=== PATIENT | female | born 2000 | race Caucasian/White ===

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

== ENCOUNTER 2024-02-15 17:26 | Emergency (ER) | payer OTHER, SELFPAY ==
[2024-02-15 17:37] VITALS: BP 98/65; PULSE 66; RESP 16; TEMP 36.6; O2SAT 100
--- NOTE | 2024-02-15 17:53 | XRR_ITS ---
PROCEDURE INFORMATION: Exam: XR Chest Exam date and time: 02/15/2024 6:02 PM Age: 23 years old Clinical indication: Other: RT breast mass; Additional info: Right chest wall pain TECHNIQUE: Imaging protocol: Radiologic exam of the chest. Views: 1 view. COMPARISON: No relevant prior studies available. FINDINGS: Lungs: Unremarkable. No consolidation. Pleural spaces: Unremarkable. No pleural effusion. No pneumothorax. Heart/Mediastinum: Unremarkable. No cardiomegaly. Bones/joints: Unremarkable. XR/XR chest 1V portable [id number] IMPRESSION: No acute findings.
--- NOTE | 2024-02-15 17:56 | USR_ITS ---
PROCEDURE INFORMATION: Exam: US Right Breast Limited Exam date and time: 02/15/2024 6:51 PM Age: 23 years old Clinical indication: Breast pain; Right; Additional info: Right chest wall painful lump TECHNIQUE: Imaging protocol: Limited ultrasound of right breast with image documentation, including axilla when performed. Exam focused on the search and evaluation for mass. COMPARISON: No relevant prior studies available. FINDINGS: ULTRASOUND: Breast ultrasound findings: No evidence of breast mass. At the site of pain/lump a rib is noted. US/US soft tissue/extremity [id number] IMPRESSION: Underlying rib noted at the site of pain/lump. No sonographic evidence of malignancy. Annual mammographic screening is recommended unless otherwise clinically indicated.
--- NOTE | 2024-02-15 17:57 | ED_ITS ---
Documented by User: STEVE Garcia 02/15/24 19:53 HPI - General Adult General: Chief complaint: General Medical Stated complaint: lump on right side of chest Time Seen by Provider: 02/15/24 17:40 Source: patient Mode of arrival: ambulatory Limitations: no limitations History of Present Illness: Patient is a 23-year-old female who presents to the emergency department for evaluation of right breast lump noticed 2 days ago. The bump is just superior to the right breast, on the right chest wall. She notes that it is painful to palpation. She noticed it while breathing and felt that the pain is worsened by this. She does note she had an issue in 2018 where her entire right breast enlarged asymmetrically, and resolved spontaneously. She notes she has not had issues like this since, though was told by her doctor that she would need further evaluation if it happened again. She states that her mom urged her to come in for evaluation. She has no personal or immediate family history of breast cancer or other abnormalities. She denies any fever, breathing difficulties, or other symptoms at this time. Onset (ago): day(s) Location: chest Severity: mild Associated symptoms: Deny chest pain, dyspnea, headache(s), nausea, rash, palp itations or vomiting Review of Systems General: Reports: 10 or more systems reviewed and unremarkable except in HPI and below Const: Denies: fever(s), chills or fatigue Eyes: Denies: change in vision ENMT: Denies: throat pain, ear or mastoid pain or nasal discharge Card: Denies: chest pain, palpitations, swelling of feet/ankles or lightheadedness Resp: Denies: dyspnea, productive cough or wheezing GI: Denies: abdominal pain, nausea, vomiting, diarrhea or constipation : Denies: flank pain, difficulty voiding, dysuria or urinary frequency Musc: Denies: neck pain, back pain or joint pain Skin/Breast: Reports: skin tenderness and breast mass; Denies: rash Neuro: Denies: headache(s), numbness in extremities or weakness in extremities PFSH ED PFSH: Family History Denies family history of Diabetes Ovarian cyst CAD (coronary artery disease) Clotting disorder Hyperlipidemia Chronic kidney disease (CKD) Anesthesia complication Family history of thyroid problem Bleeding disorder Cancer Hypertension Social History Smoking and tobacco/nicotine status: never used tobacco/nicotine Alcohol intake: never Substance/Drug Use: never Physical Exam Const: COMMON NORMALS: no acute distress, patient oriented x3 and no limitations GENERAL APPEARANCE: cooperative, comfortable and well developed ORIENTATION/CONSCIOUSNESS: Yes awake, Yes oriented to person, Yes oriented to place and Yes oriented to time HENMT: COMMON NORMALS: normocephalic, atraumatic and hearing grossly normal bilaterally HEAD & SCALP: normocephalic and atraumatic Eye: COMMON NORMALS: Equal, round and reactive pupils present, EOMs intact bilaterally and conjunctivae normal CONJUNCTIVA: Yes conjunctivae normal PUPIL: Yes Equal, round and reactive pupils present Neck/C-Spine: COMMON NORMALS: full ROM, supple and no JVD Chest: COMMONS NORMALS: normal inspection of the chest CHEST: No mass and Yes tenderness pectoral muscle on the right Resp: COMMON NORMALS: normal respiratory effort, No retractions, No use of accessory muscles and clear to auscultation bilaterally AUSCULTATION: clear to auscultation bilaterally Cardio: COMMON NORMALS: no JVD, regular rate, regular rhythm, No clicks present (Cardio), No murmurs present (Cardio) and No rub (Cardio) RATE: regular rate RHYTHM: regular rhythm GI: COMMON NORMALS: Normal to inspection, nondistended, normoactive bowel sounds present, Soft to palpation and non-tender AUSCULTATION: Yes normoactive bowel sounds PALPATION: Yes Soft to palpation RECTAL EXAM: deferred Extremity: COMMON NORMALS: normal to inspection, full ROM and capillary refill normal Neuro: COMMON NORMALS: patient oriented x3, moves all extremities, no focal motor deficits and no sensory deficits noted SENSORIUM/ORIENTATION: Yes oriented to person, Yes oriented to place and Yes oriented to time Psych: COMMON NORMALS: mental status grossly normal and Normal thought process present THOUGHT PROCESS: Normal thought process present Skin: COMMON NORMALS: no rashes or lesions noted GENERAL SKIN EXAM: no rashes or lesions noted Course Vital Signs: Vital signs: Vital Signs Temperature 97.8 F 02/15/24 17:37 Pulse Rate 66 02/15/24 17:37 Respiratory Rate 16 02/15/24 17:37 Blood Pressure 98/65 02/15/24 17:37 Pulse Oximetry 100 02/15/24 17:37 MDM - General Adult Medical Decision Making Patient seen for pain to the right chest wall. She states she felt a mass that was worse with palpation and breathing. No personal or family history of breast malignancy or other abnormalities. Exam revealed tenderness palpation about the right anterior chest, no real appreciable mass however. X-ray was normal. Ultrasound did not show evidence of any mass or other concerning signs for malignancy. Instructed patient to follow-up with primary care routinely and return precautions were given. Due to patient's pain with palpation and worsened with breathing, I believe patient potentially has a costochondritis and can treat with ibuprofen and ice as needed. Patient agrees with this plan. Lab Data Radiology Impressions Chest X-Ray 02/15/24 17:53 IMPRESSION: No acute findings. Soft Tissue Ultrasound 02/15/24 17:56 IMPRESSION: Underlying rib noted at the site of pain/lump. No sonographic evidence of malignancy. Annual mammographic screening is recommended unless otherwise clinically indicated. All radiology interpretation(s) finalized by discharge Discharge Plan Discharge Patient Disposition: Home Clinical Impression: Acute costochondritis Condition: Stable Discharge Orders: Discharge ED (Routine); Ordered 02/15/24 Ordered By: Ronan Golden Referrals: Dago Slater DO [Primary Care Provider] - Discharge Diet: Usual diet Discharge Activity: Resume usual activity Patient Instructions: Costochondritis (ED) Activity Restrictions/Additional Instructions: Ibuprofen as needed. Ice to the area as needed. Follow-up with primary care for any further evaluation. Return if you have any new or concerning symptoms. Coding Level of Care Code ED [employer] Documented by User: Elio Whitten DO 02/16/24 07:50 HPI - General Adult General: Chief complaint: General Medical Stated complaint: lump on right side of chest Time Seen by Provider: 02/15/24 17:40 PFSH ED PFSH: Family History Denies family history of Diabetes Ovarian cyst CAD (coronary artery disease) Clotting disorder Hyperlipidemia Chronic kidney disease (CKD) Anesthesia complication Family history of thyroid problem Bleeding disorder Cancer Hypertension Social History Smoking and tobacco/nicotine status: never used tobacco/nicotine Alcohol intake: never Substance/Drug Use: never Course Vital Signs: Vital signs: Vital Signs Temperature 97.8 F 02/15/24 17:37 Pulse Rate 66 02/15/24 17:37 Respiratory Rate 16 02/15/24 17:37 Blood Pressure 98/65 02/15/24 17:37 Pulse Oximetry 100 02/15/24 17:37 MDM - General Adult Medical Decision Making Patient seen for pain to the right chest wall. She states she felt a mass that was worse with palpation and breathing. No personal or family history of breast malignancy or other abnormalities. Exam revealed tenderness palpation about the right anterior chest, no real appreciable mass however. X-ray was normal. Ultrasound did not show evidence of any mass or other concerning signs for malignancy. Instructed patient to follow-up with primary care routinely and return precautions were given. Due to patient's pain with palpation and worsened with breathing, I believe patient potentially has a costochondritis and can treat with ibuprofen and ice as needed. Patient agrees with this plan. Chart reviewed Lab Data Radiology Impressions Chest X-Ray 02/15/24 17:53 IMPRESSION: No acute findings. Soft Tissue Ultrasound 02/15/24 17:56 IMPRESSION: Underlying rib noted at the site of pain/lump. No sonographic evidence of malignancy. Annual mammographic screening is recommended unless otherwise clinically indicated. Discharge Plan Discharge Patient Disposition: Home Clinical Impression: Acute costochondritis Condition: Stable Discharge Orders: Discharge ED (Routine); Ordered 02/15/24 Ordered By: Ronan Golden Referrals: Dago Slater DO [Primary Care Provider] - Discharge Diet: Usual diet Discharge Activity: Resume usual activity Patient Instructions: Costochondritis (ED) Activity Restrictions/Additional Instructions: Ibuprofen as needed. Ice to the area as needed. Follow-up with primary care for any further evaluation. Return if you have any new or concerning symptoms. Coding Level of Care Code ED [employer] for [employer] [employer]
== END 2024-02-15 20:02 | disposition home or self-care (01) ==
PROVIDERS: Emergency Provider Physician Assistant; PCP Family Medicine
DX: M94.0 Chondrocostal junction syndrome [Tietze] (principal)
CPT/HCPCS: 71045; 76882; 99284

== ENCOUNTER → 2024-04-29 10:15 | Outpatient (BNVA) | payer OTHER, SELFPAY | PROVIDERS: PCP Family Medicine; Visit Provider Emergency Medicine | DX: S59.911A Unspecified injury of right forearm, initial encounter (principal); Z3A.00 Weeks of gestation of pregnancy not specified | CPT/HCPCS: 73090 ==